=== PATIENT | male | born 1955 | race Caucasian/White ===

== ENCOUNTER 2023-05-07 00:21 | Emergency (ER) | payer MEDICARE, SELFPAY ==
[2023-05-07] VITALS (16 sets, daily range): BP systolic 123–144; BP diastolic 77–87; PULSE 75–89; RESP 14–22; TEMP 36.1; O2SAT 97–100
--- NOTE | ~2023-05-07 | XR_ITS ---
Clinical Indication: Cough PA and lateral views of the chest: Comparison: None Findings: The lungs are clear, without evidence of focal consolidation or pleural effusion. Cardiome diastinal silhouette is within normal limits. Bones and soft tissues are unremarkable. Impression: Normal chest. Reviewed, dictated and finalized at location . Impression: Normal chest.
--- NOTE | 2023-05-07 01:19 | ECG_ITS ---
Measurements Intervals [place] Rate: 79 P: 48 [place]: 161 QRS: 86 QRSD: 85 T: 30 QT: 356 QTc: 410 Interpretive Statements SINUS RHYTHM BASELINE WANDER- II, III, AVR, AVL, AVF NORMAL ECG NO PREVIOUS ECG AVAILABLE FOR COMPARISON Electronically Signed On 05-07-2023 6:58:37 CDT by Delvis Doe D.O.
[2023-05-07 01:59] LABS: Influenza A QL RT-PCR Negative (Negative); Influenza B QL RT-PCR Negative (Negative); SARS-CoV-2 RNA PCR Positive (Negative)
[2023-05-07] MEDS: ACETAMINOPHEN 500 MG TABLET 1000 MG PO (03:05)
[2023-05-07] MEDS: IBUPROFEN 400 MG TABLET 800 MG PO (03:05)
[2023-05-07] MEDS: guaiFENesin/DEXTROMETHORPHAN 10 ML UDC PO (03:06)
[2023-05-07] MEDS: chlorproMAZINE HCL 25 MG TABLET PO (03:06)
--- NOTE | 2023-05-07 03:20 | ED.GENADULT ---
HPI - General Adult General Chief complaint: Upper Respiratory Infection Stated complaint: upper resp symptoms Time Seen by Provider: 05/07/23 01:56 History of Present Illness HPI narrative: this is a 59-year-old male presenting ED with a chief complaint of URI symptoms. Patient was diagnosed with COVID 2 weeks ago. At that time he was treated with Paxlovid. His symptoms improved but now they have recurred. Now he has cough, hiccups congestion and generalized fatigue. He denies chest pain or shortness of breath. Denies nausea vomiting or diarrhea. Related Data Home Medications Medication Instructions Recorded Confirmed atorvastatin 20 mg tablet 20 mg PO DAILY 06/30/19 06/30/19 bisoprolol 5 1 tablet PO DAILY 06/30/19 06/30/19 mg-hydrochlorothiazide 6.25 mg tablet fenofibrate micronized 134 mg 134 mg PO DAILY 06/30/19 06/30/19 capsule metformin 500 mg tablet 500 mg PO DAILY 06/30/19 06/30/19 quinapril 20 mg tablet 20 mg PO DAILY 06/30/19 06/30/19 Allergies Allergy/AdvReac Type Severity Reaction Status Date / Time No Known Allergies Allergy Mild Verified 05/07/23 01:12 [facility] Past Medical History Medical History Diabetes Hyperlipidemia Hypertension Social History Social History Gender identity (if verbalized by the patient): Male Exam Narrative: APPEARANCE: No apparent distress. Head: atraumatic. EYES: EOMI, NOSE: Atraumatic NECK: Trachea midline RESPIRATORY: No increased rate of breathing , clear to auscultation CARDIOVASCULAR: RRR, no peripheral edema ABDOMINAL: Non-distended soft nontender no guarding rebound MUSCULOSKELETAl: No obvious deformities NEURO: Alert. Moving 4/4 extremities SKIN:: Warm, dry. Normal color PSYCHIATRIC: Normal affect Course Vital Signs Vital signs: Vital Signs Temperature 97.0 F L 05/07/23 00:24 Pulse Rate 78 05/07/23 00:24 Respiratory Rate 18 05/07/23 00:24 Blood Pressure 141/79 H 05/07/23 00:24 Pulse Oximetry 99 05/07/23 00:24 Oxygen Delivery Room Air 05/07/23 00:24 Temperature 97.0 F L 05/07/23 00:24 Pulse Rate 81 05/07/23 02:46 Respiratory Rate 16 05/07/23 02:46 Blood Pressure 133/81 05/07/23 02:45 Pulse Oximetry 100 05/07/23 02:46 Oxygen Delivery Room Air 05/07/23 01:15 Medical Decision Making MDM Narrative Medical decision making narrative: -Course: 67-year-old male presenting with URI symptoms 2 weeks after being treated with Paxil that for his COVID. His COVID test had been negative over last several days but there again positive. This is likely rebound COVID. Patient was treated symptomatically with improvement in his symptoms. He will be discharged with supportive care. Return precautions given -DDX includes but is not limited to: URI, COVID, rebound COVID, pneumonia, bronchitis, PE -Co-morbidities complicating care: recent COVID infection, hypertension, diabetes -Social determinants of health: retired, lives with his -Independent interpretation of studies: COVID positive. chest x-ray unremarkable. Independent EKG interpretation: Rhythm [sinus], Rate [79], [place] -[normal], [place] -[normal], QRS [narrow], QTC [normal], T waves -[negative for concerning inversions], ST Segments - [Negative for concerning elevations] Final interpretations: [Normal Sinus Rhythm] -Dx tests considered but not ordered: PE studies- not tachycardic, not hypoxic, No chest pain, no respiratory distress. -Interventions: Motrin, Tylenol, Thorazine, Robitussin, Zofran -Shared decision making / Disposition: discharged. X Vital Signs Vital Signs: Vital Signs Temperature 97.0 F L 05/07/23 00:24 Pulse Rate 78 05/07/23 00:24 Respiratory Rate 18 05/07/23 00:24 Blood Pressure 141/79 H 05/07/23 00:24 Pulse Oximetry 99 05/07/23 00:24 Oxygen Delivery Room Air 05/07/23 00:24 T
== END 2023-05-07 03:45 | disposition home or self-care (01) ==
PROVIDERS: Emergency Provider Emergency Medicine; PCP Internal Medicine
DX: U07.1 COVID-19 (principal); R06.6 Hiccough; E11.9 Type 2 diabetes mellitus without complications; E78.5 Hyperlipidemia, unspecified; I10 Essential (primary) hypertension
CPT/HCPCS: 71046; 87636; 93005; 99283; A9270

== ENCOUNTER 2023-05-08 11:24 | Inpatient (IN) | payer MEDICARE, SELFPAY ==
[2023-05-08] VITALS (20 sets, daily range): BP systolic 57–148; BP diastolic 42–76; PULSE 69–105; RESP 13–25; TEMP 36.6–36.8; O2SAT 98–100; BMI 30.9
--- NOTE | ~2023-05-08 | NM_ITS ---
EXAMINATION: NM lung vent and perfusion DATE: 05/10/2023 11:41 INDICATION: Cough. Syncope. Orthostatic hypotension. TECHNIQUE: Ventilation images were performed with 26 mCi Xenon-[id number]. 5.5 mCi Tc-99m MAA was administer ed intravenously for perfusion images. Scintigraphic images of the chest were obtained. COMPARISON: Chest single view 05/09/2023 FINDINGS: The ventilation images demonstrate decreased activity in the left lung relative to the right on the s mary jo breath image. There is retention of radiotracer bilaterally on washout images. Perfusion images show no defects. IMPRESSION: 1. Normal lung perfusion. Reviewed, dictated and finalized at location A. IMPRESSION: 1. Normal lung perfusion.
--- NOTE | ~2023-05-08 | XR_ITS ---
XR chest 1V portable DATE: 05/08/2023 12:27 INDICATION: Syncope. Covid-positive. TECHNIQUE: Portable AP chest on 05/04/2023 at 1220 hours COMPARISON: 05/07/2023 PA and lateral chest FINDINGS: Normal heart size. No hilar or mediastinal enlargement. No pulmonary infiltrate or consolid ation, pleural effusion or pulmonary vascular congestion or pneumothorax. Osteopenia. Dextro scoliosis and degenerative spurring of the thoracic spine. [place] devices of right humeral hea d. IMPRESSION: No active cardiopulmonary disease Reviewed, dictated and finalized at location A.
--- NOTE | ~2023-05-08 | CT_ITS ---
Non-contrast Head CT History: Headache Technique: Axial non-contrast imaging of the brain was performed. Dose reduction technique was used on this scan by utilizing automated exposure control and iterative reconstruction technique. The dose -length product (DLP) was 681.00 mGy-cm. Findings: There is no evidence of intracranial hemorrhage, solid mass lesion, or acute infarct. Ther e is a small arachnoid cyst at the anterior left temporal fossa. Brain parenchyma appears normal. Th e ventricles and subarachnoid spaces are normal in size. The calvarium appears normal. Mild left max illary sinus disease noted. The remaining visualized paranasal sinuses and mastoid air cells are soheila r. Impression: No acute intracranial abnormality. Small arachnoid cyst at the anterior left temporal fossa. Mild left maxillary sinus disease. Reviewed, dictated and finalized at [facility]. Impression: No acute intracranial abnormality. Small arachnoid cyst at the anterior left temporal fossa. Mild left maxillary sinus disease.
--- NOTE | 2023-05-08 11:42 | ECG_ITS ---
Measurements Intervals [place] Rate: 71 P: 16 [place]: 165 QRS: 57 QRSD: 96 T: 14 QT: 394 QTc: 430 Interpretive Statements SINUS RHYTHM NORMAL ECG COMPARED TO ECG 05/07/2023 01:24:25 NO SIGNIFICANT CHANGES Electronically Signed On 05-08-2023 16:34:25 CDT by Delvis Doe D.O.
[2023-05-08 12:02] LABS: Basophils Percent Auto 0.2 % (0.2-1.2); Eosinophils Absolute Auto 0.1 K/mm3 (0-0.3); Eosinophils Percent Auto 0.9 % (0-4.4); Hematocrit 38.2 % (42.0-52.0); Hemoglobin 13.1 g/dL (14.0-18.0); Immature Granulocyte Absolute 0.04 K/mm3 (0.00-0.031); Immature Granulocyte Percent A 0.6 % (0-0.5); Lymphocytes Absolute Auto 1.34 K/mm3 (0.9-3.2); Lymphocytes Percent Auto 20.2 % (18.3-44.2); Mean Corpuscular HGB Conc 34.3 g/dl (32-36); Mean Corpuscular Hemoglobin 29.4 pg (26-34); Mean Corpuscular Volume 85.7 fl (80-100); Mean Platelet Volume 9.9 fl (7.4-10.4); Monocytes Absolute Auto 0.6 K/mm3 (0.1-0.6); Monocytes Percent Auto 8.9 % (2.6-8.5); Neutrophils Absolute Auto 4.6 K/mm3 (1.3-6.7); Neutrophils Percent Auto 69.2 % (45.5-73.1); Platelet Count Result 206 k/mm3 (150-375); Red Blood Count 4.46 M/mm3 (4.6-6.20); Red Cell Distribution Width 11.9 % (11.5-14.5); White Blood Count 6.7 K/mm3 (4.5-10.0)
[2023-05-08 12:15] LABS: Alanine Aminotransferase 22 U/L (6-50); Anion Gap 13 mmol/L (8-16); Aspartate Amino Transferase 30 U/L (17-59); Blood Urea Nitrogen 35 mg/dL (9-20); Calcium 10.2 mg/dL (8.4-10.2); Carbon Dioxide 24 mmol/L (22-30); Chloride 94 mmol/L (98-107); Estimated CRCL calculation 30 ml/min; Estimated Glomerular Filt Rate 30; Glucose 117 mg/dL (65-110); Potassium 4.4 mmol/L (3.4-5.0); Sodium 131 mmol/L (137-145)
[2023-05-08 12:16] LABS: Albumin Level 4.5 g/dL (3.5-5.1); Alkaline Phosphatase 47 U/L (38-126)
[2023-05-08] MEDS: SODIUM CHLORIDE 0.9% IV 2,000 ML 999 ML IV CONT (12:23)
[2023-05-08 12:48] LABS: Lactic Acid Reflex 1.5 mmol/L (0.7-2.0)
[2023-05-08 12:53] LABS: Appearance Urine Clear (Clear); Bilirubin Urine Negative (Negative); Blood Urine Negative (Negative); Color Urine Yellow (Yellow); Glucose Urine UA Negative (Negative); Ketones Urine Negative (Negative); Leukocyte Esterase Ur Negative LEU/UL (Negative); Nitrate Urine Negative (Negative); Protein Urine Negative (Negative); pH Urine 5.5 (5.0-9.0)
[2023-05-08 12:54] LABS: INR 1.1; Prothrombin Time 14.4 Seconds (11.1-14.7)
[2023-05-08 12:57] LABS: Add Urine Microscopic? NO
[2023-05-08 13:14] LABS: Influenza A QL RT-PCR Negative (Negative); Influenza B QL RT-PCR Negative (Negative)
--- NOTE | 2023-05-08 13:35 | ED.SYNCOPE ---
HPI - Syncope General Chief Complaint: Syncope Stated Complaint: COVID, weakness, syncope Time Seen by Provider: 05/08/23 12:02 History of Present Illness HPI narrative: This is a 67-year-old male, with past history of hypertension, positive for COVID 2 weeks ago, who presents to the emergency department with 3 episodes of syncope in the past day. The patient was seen in this emergency room yesterday for hiccups and was discharged with Compazine. Yesterday evening, the patient's noted while walking to the bathroom, the patient lost consciousness. Today, the patient has lost consciousness twice. The patient feels overall weak but has no other acute complaints. Related Data Home Medications Medication Instructions Recorded Confirmed atorvastatin 20 mg tablet 20 mg PO DAILY 06/30/19 05/08/23 fenofibrate micronized 134 mg 134 mg PO DAILY 06/30/19 05/08/23 capsule Ozempic 1 mg BYMOUTH WEEKLY 05/08/23 05/08/23 losartan 50 mg tablet 50 mg PO DAILY 05/08/23 05/08/23 ondansetron 4 mg disintegrating 4 mg PO Q8H PRN nausea and vomiting 05/08/23 05/08/23 tablet tamsulosin 0.4 mg capsule 0.4 mg PO DAILY 05/08/23 05/08/23 Allergies Allergy/AdvReac Type Severity Reaction Status Date / Time No Known Allergies Allergy Mild Verified 05/07/23 01:12 Review of Systems Review of Systems: CONSTITUTIONAL: Denies fever, chills, or sweats. CARDIOVASCULAR: Denies chest pain, palpitations, or edema. RESPIRATORY: Intermittent dry cough denies dyspnea. GASTROINTESTINAL: Loose stools and intermittent vomiting without blood denies abdominal pain, nausea, GENITOURINARY: Denies dysuria or hematuria. SKIN: Denies rash or itching. MUSCULOSKELETAL: Denies back pain, joint pain, or myalgia. NEUROLOGIC: Lightheadedness denies headache, dizziness, or weakness. PSYCHIATRIC: Denies anxiety or depression. [facility] Past Medical History Medical History (Updated 05/08/23 @ 20:55 by Jacqueline Copeland PA-C) Hyperlipidemia Hypertension Metabolic syndrome X Surgical History Surgical History (Updated 05/08/23 @ 18:40 by Jacqueline Copeland PA-C) History of appendectomy History of repair of right rotator cuff History of right inguinal hernia repair History of vasectomy Family History Family History Mother Diabetes mellitus Father Lung cancer Social History Social History (Updated 05/08/23 @ 18:41 by Jacqueline Copeland PA-C) Social History: Surrogate medical decision maker: Sarah Crawford, spouse. Code status: Full code. Smoking status: Never smoker Alcohol intake: current Substance use: never Lack of Transportation: No Lack of Food: Never True Current Housing: I Have Housing Concerned About Future Housing: No Difficulty Paying Gas/Electric Bills: No Difficulty Paying for Meds: No Currently Unemployed: No Education: High School Diploma/GED Difficulty w/ Childcare or Family Care: No Spiritual care concerns: No Exam Narrative: GENERAL: Well-developed, well-nourished, and in no acute distress. HEAD: Normocephalic, atraumatic. EYES: PERRLA and EOMI. ENT: Nares clear, no rhinorrhea or epistaxis. Mucous membranes moist. CHEST: Clear to auscultation. No respiratory distress. No wheezes rales or rhonchi HEART: Regular rate and rhythm. No murmur heard. Normal peripheral pulses. ABDOMEN: Soft, nontender, nondistended, normal active bowel sounds. EXTREMITIES: Normal range of motion. No edema. SKIN: Warm, dry, no rash. NEURO: Alert and oriented x3. Moving all 4 limbs purposefully. PSYCH: Normal mood and affect. Course Course Emergency Course: 13:40 - CBC demonstrates mild anemia with hemoglobin of 13.1 but is otherwise unremarkable. Chemistries demonstrate mild hyponatremia with sodium of 131 and creatinine elevation of 2.2 with an unknown baseline. Lactic acid is negative. Urinalysis negative. Influenza swab negative. Chest x-ray not
[2023-05-08 14:51] LABS: Anion Gap 10 mmol/L (8-16); Blood Urea Nitrogen 34 mg/dL (9-20); Calcium 9.4 mg/dL (8.4-10.2); Carbon Dioxide 19 mmol/L (22-30); Chloride 101 mmol/L (98-107); Estimated CRCL calculation 36 ml/min; Estimated Glomerular Filt Rate 38; Glucose 104 mg/dL (65-110); Potassium 4.4 mmol/L (3.4-5.0); Sodium 130 mmol/L (137-145)
--- NOTE | 2023-05-08 16:23 | ADMGEN ---
This patient, Bo Crawford, was admitted to Medical Room 253-01. Patient/family oriented to hospital policies and general routines including ID bracelet, bed and alarms, visiting hours, pain management, procedures, bathroom and other care routines, personal items, smoking policy, room service/diet, and visiting hours. Information on how to activate the Rapid Response Team has been discussed. Patient/Family are encouraged to report perceived risks to care and to ask questions if they do not understand what they are told or what they should do.
[2023-05-08] MEDS: SODIUM CHLORIDE 0.9% IV 1,000 ML 125 ML IV CONT (16:31)
[2023-05-08 16:47] LABS: Glucose Point of Care 99 mg/dl (65-105)
--- NOTE | 2023-05-08 18:26 | PM.IMHP ---
H&P: HPI History of Present Illness Date/Time: 05/08/23 19:30 Chief Complaint: Weakness, fall, syncope. Narrative: This is a 67-year-old male with insulin-dependent type 2 diabetes mellitus, hypertension, hyperlipidemia, and benign prostatic hyperplasia who presented to the emergency department via EMS from home for evaluation of weakness, falls, and syncope. The patient provides the following history. He was diagnosed with COVID 2 weeks ago and was treated with Paxlovid with improvement. His symptoms returned this week and he was seen in the emergency department 2 days ago for evaluation of generalized fatigue, congestion, cough, and hiccups. He was treated symptomatically with improvement. COVID test was still positive and it was thought that he likely had rebound COVID. He remains weak with intermittent hiccups which seemed to be worse with talking, nausea, and dry heaves. His appetite remains poor with decreased oral intake. In the last 24 hours he has been getting extremely lightheaded and dizzy upon standing and he reports having four syncopal episodes since last night. Luckily he has not sustained any injury in the falls. He denies fever, vertigo, focal weakness, paresthesias, chest pain, pleuritic pain, palpitations, and lower extremity edema. In the ED: He was afebrile on arrival with a blood pressure of 83/51. Blood pressures have improved significantly after receiving 2 L of normal saline. Labs were significant for a sodium of 131, chloride 94, BUN 35, creatinine 2.20, lactic acid 1.5. Chest x-ray showed no active cardiopulmonary disease. EKG showed a sinus rhythm with a QTc of 430. He is being admitted in this setting for close monitoring given syncope and continued IV fluid rehydration for acute kidney injury. Review of Systems Review of Systems: Twelve systems were reviewed and are negative except for as per HPI. [facility] Past Medical History Medical History (Updated 05/09/23 @ 00:39 by Jacqueline Copeland PA-C) Hyperlipidemia Hypertension Metabolic syndrome X Surgical History Surgical History (Updated 05/08/23 @ 18:40 by Jacqueline Copeland PA-C) History of appendectomy History of repair of right rotator cuff History of right inguinal hernia repair History of vasectomy Family History Family History Mother Diabetes mellitus Father Lung cancer Social History Social History (Updated 05/08/23 @ 18:41 by Jacqueline Copeland PA-C) Social History: Surrogate medical decision maker: Sarah Crawford, spouse. Code status: Full code. Smoking status: Never smoker Alcohol intake: current Substance use: never Lack of Transportation: No Lack of Food: Never True Current Housing: I Have Housing Concerned About Future Housing: No Difficulty Paying Gas/Electric Bills: No Difficulty Paying for Meds: No Currently Unemployed: No Education: High School Diploma/GED Difficulty w/ Childcare or Family Care: No Spiritual care concerns: No Meds Home Medications and Allergies Home Medications Medication Instructions Recorded Confirmed Type atorvastatin 20 mg tablet 20 mg PO DAILY 06/30/19 05/08/23 History fenofibrate micronized 134 mg 134 mg PO DAILY 06/30/19 05/08/23 History capsule Ozempic 1 mg BYMOUTH WEEKLY 05/08/23 05/08/23 History losartan 50 mg tablet 50 mg PO DAILY 05/08/23 05/08/23 History ondansetron 4 mg disintegrating 4 mg PO Q8H PRN nausea and vomiting 05/08/23 05/08/23 History tablet tamsulosin 0.4 mg capsule 0.4 mg PO DAILY 05/08/23 05/08/23 History Allergies Allergy/AdvReac Type Severity Reaction Status Date / Time No Known Allergies Allergy Mild Verified 05/07/23 01:12 Vital Signs Vital Signs - 24 hr 05/08/23 11:30 05/08/23 11:55 05/08/23 12:02 Temperature 97.9 F Pulse Rate 76 71 72 Respiratory Rate 18 15 25 H Blood Pressure 83/51 L 85/63 L Pulse Oximetry 99 99 99 Oxygen Delivery Room Air 0
[2023-05-08 19:34] LABS: Hemoglobin A1C 5.6 % (<5.7)
[2023-05-08 22:10] LABS: Glucose Point of Care 91 mg/dl (65-105)
[2023-05-09] VITALS (15 sets, daily range): BP systolic 92–133; BP diastolic 42–75; PULSE 63–97; RESP 18; TEMP 36.2–37; O2SAT 98–100
[2023-05-09] MEDS: SODIUM CHLORIDE 0.9% IV 1,000 ML 125 ML IV CONT ×3 (00:17→17:20)
[2023-05-09 02:33] LABS: Basophils Percent Auto 0.3 % (0.2-1.2); Eosinophils Absolute Auto 0.1 K/mm3 (0-0.3); Eosinophils Percent Auto 0.9 % (0-4.4); Hematocrit 33.9 % (42.0-52.0); Hemoglobin 11.6 g/dL (14.0-18.0); Immature Granulocyte Absolute 0.04 K/mm3 (0.00-0.031); Immature Granulocyte Percent A 0.6 % (0-0.5); Lymphocytes Absolute Auto 1.44 K/mm3 (0.9-3.2); Lymphocytes Percent Auto 22.1 % (18.3-44.2); Mean Corpuscular HGB Conc 34.2 g/dl (32-36); Mean Corpuscular Hemoglobin 29.8 pg (26-34); Mean Corpuscular Volume 87.1 fl (80-100); Mean Platelet Volume 9.7 fl (7.4-10.4); Monocytes Absolute Auto 0.7 K/mm3 (0.1-0.6); Monocytes Percent Auto 11.1 % (2.6-8.5); Neutrophils Absolute Auto 4.2 K/mm3 (1.3-6.7); Platelet Count Result 175 k/mm3 (150-375); Red Blood Count 3.89 M/mm3 (4.6-6.20); Red Cell Distribution Width 12.2 % (11.5-14.5); White Blood Count 6.5 K/mm3 (4.5-10.0)
[2023-05-09 02:54] LABS: Anion Gap 5 mmol/L (8-16); Blood Urea Nitrogen 30 mg/dL (9-20); Calcium 9.4 mg/dL (8.4-10.2); Carbon Dioxide 25 mmol/L (22-30); Chloride 107 mmol/L (98-107); Estimated CRCL calculation 40 ml/min; Estimated Glomerular Filt Rate 43; Glucose 102 mg/dL (65-110); Magnesium 2.2 mg/dL (1.6-2.3); Potassium 4.5 mmol/L (3.4-5.0); Sodium 137 mmol/L (137-145)
[2023-05-09 05:33] LABS: D Dimer 0.54 ug/mL (<0.48)
[2023-05-09] MEDS: ATORVASTATIN 20 MG TABLET PO (08:10)
[2023-05-09 08:15] LABS: Glucose Point of Care 106 mg/dl (65-105)
[2023-05-09 12:10] LABS: Glucose Point of Care 87 mg/dl (65-105)
--- NOTE | 2023-05-09 14:13 | PM.IMPN ---
Progress Note: A&P Assessment and Plan (1) COVID: Code(s): U07.1 - COVID-19 Status: Acute (2) Syncope: Qualifiers: Syncope type: unspecified Qualified Code(s): R55 - Syncope and collapse Code(s): R55 - Syncope and collapse Status: Acute (3) Acute kidney injury: Code(s): N17.9 - Acute kidney failure, unspecified Status: Acute (4) Orthostatic hypotension: Code(s): I95.1 - Orthostatic hypotension Status: Acute (5) Metabolic syndrome X: Code(s): E88.81 - Metabolic syndrome Status: Acute Plan 59-year-old male with past medical history of hypertension COVID positive 2 weeks ago presented with syncopal episodes in the past day. Patient presented to the ER 05/07/2023 with hiccups and was discharged on Compazine. Patient walked to the bathroom went unconscious x2 ED evaluation revealed mild hyponatremia 131 creatinine elevation of 2.2 lactate negative UA negative influenza negative chest x-ray negative blood pressure was adequate. He was diagnosed with COVID 2 weeks ago was treated with paxlovid with improvement however still has significant cough. Blood pressure in the ED was 83/51 improved after 2 L of normal saline. QTC of 430 Syncope YARA Orthostatic hypotension profoundly orthostatic blood pressure dropped from 116/60 to 57/42 continue IV hydration. D-dimer mildly elevated at 0.54 could be related to recent COVID will get V/Q scan YARA improving hyponatremia resolved Telemetry with possible second-degree AV block. Will consult cardiology. Will get echocardiogram Headache reported possible injury to head will get CT head Subjective Date/time seen: 05/09/23 14:13 Interval history: 59-year-old male with past medical history of hypertension COVID positive 2 weeks ago presented with syncopal episodes in the past day. Patient presented to the ER 05/07/2023 with hiccups and was discharged on Compazine. Patient walked to the bathroom went unconscious x2 ED evaluation revealed mild hyponatremia 131 creatinine elevation of 2.2 lactate negative UA negative influenza negative chest x-ray negative blood pressure was adequate. He was diagnosed with COVID 2 weeks ago was treated with paxlovid with improvement however still has significant cough. Blood pressure in the ED was 83/51 improved after 2 L of normal saline. QTC of 430 Syncope YARA Orthostatic hypotension profoundly orthostatic blood pressure dropped from 116/60 to 57/42 continue IV hydration. D-dimer mildly elevated at 0.54 could be related to recent COVID will get V/Q scan YARA improving hyponatremia resolved Telemetry with possible second-degree AV block. Will consult cardiology. Will get echocardiogram Headache reported possible injury to head will get CT head Review of Systems Review of Systems: All systems reviewed & are unremarkable except as noted in HPI and below Exam Narrative: General: Mildly ill-appearing gentleman the semi-Ochoa position in bed. Not in acute distress HEENT: PERRL, EOMI. Sclera anicteric. Tacky mucous membranes. Oropharynx is mildly erythematous. Neck: Supple. No JVD or lymphadenopathy. Respiratory: Lungs are clear to auscultation bilaterally. Cardiovascular: Regular rate and rhythm with S1-S2. Gastrointestinal: Abdomen is soft, nontender, and nondistended with positive bowel sounds. Skin: Warm and dry. No rash or lesions on limited exam. Extremities: No cyanosis, clubbing, or edema. Radial and pedal pulses intact. No palpable knots or cords. Neurological: Alert. Cranial nerves 2-12 are grossly intact. No gross focal deficits to casual conversation. Psychiatric: Pleasant and cooperative with normal mood and affect. Judgment and insight intact. Objective Data Vital Signs Vital Signs: Vital Signs - 24 hr 05/08/23 14:16 05/08/23 15:01 05/08/23 17:06 Temperature Pulse Rate 85 70 Respiratory Rate 22 H 16 Blood Pressure 119/76 121/64 Pulse Oximetry
[2023-05-09] MEDS: FLUTICASONE PROPIONATE 0.05% NA SPR 16 GM BTL (*BKC) 1 SPRAY NASAL (20:22)
[2023-05-10] VITALS (18 sets, daily range): BP systolic 93–165; BP diastolic 58–91; PULSE 60–150; RESP 16–20; TEMP 36.7–37.1; O2SAT 98–100
--- NOTE | 2023-05-10 | ECHO_ITS ---
Patient Info Name: Bo Crawford Age: 67 years : 1955 Gender: Male Ht: 65 in Wt: 182 lbs BSA: 1.97 m2 HR: 60 bpm BP: 140 / 66 mmHg Heart Rhythm: Sinus Rhythm Technical Quality: Fair Exam Date: 05/10/2023 1:52 PM Exam Location: [facility] Pulmonary Exam Room: [facility] Patient Status: Inpatient Admit Date: 05/08/2023 Staff Ordering Physician: Sherman Garcia MD Windows Support Engineer: Alyssia Stephens RDCS Attending Provider: Savi Christensen DO Exam Type: CA echo doppler color flow Study Info Indications - syncope Complete two-dimensional, color flow and Doppler transthoracic echocardiogram is performed. Summary 1. Complete two-dimensional, color flow and Doppler transthoracic echocardiogram is performed. 2. Normal left and right ventricular size and systolic function. 3. Trivial amounts of both tricuspid and pulmonic valve regurgitation. Left Ventricle Left ventricular chamber dimension is normal. Left ventricular systolic function is normal, estimated at 60-65%. The left ventricular diastolic function is grade I diastolic dysfunction. Right Ventricle Right ventricular chamber dimension is normal. Left Atria Left atrial chamber dimension is normal. Right Atria Right atrial chamber dimension is normal. Aortic Valve The aortic valve is normal. Pulmonic Valve The pulmonic valve is normal. There is trace pulmonic regurgitation. Mitral Valve The mitral valve has normal leaflets. Tricuspid Valve The tricuspid valve leaflets are normal. There is trace tricuspid valve regurgitation. Pericardium/Pleural The pericardium appears normal. Aorta The aortic root size at the sinus of Valsalva is normal. Left Ventricular Outflow Tract Name Value Normal LVOT 2D LVOT Diameter 2.0 cm LVOT Doppler LVOT Peak Gradient 4 mmHg LVOT Mean Gradient 3 mmHg LVOT VTI 22 cm LVOT VTI/AV VTI Ratio 0.7 LVOT Stroke Volume 68 ml LVOT CO 14.6 l/min LVOT CI 7.4 l/min/m2 Pulmonic Valve Name Value Normal RVOT Doppler RVOT Peak Gradient 1 mmHg PV Doppler PV Peak Gradient 2 mmHg Mitral Valve Name Value Normal MV Doppler MV Decel [place] 486 cm/s2 MV PHT 43 ms MV Area (PHT) 5.1 cm2 4.0-5.0 MV Diastolic Function MV E Peak Velocity
[2023-05-10] MEDS: SODIUM CHLORIDE 0.9% IV 1,000 ML 125 ML IV CONT ×2 (01:35→10:12)
[2023-05-10 06:08] LABS: Basophils Percent Auto 0.3 % (0.2-1.2); Eosinophils Absolute Auto 0.1 K/mm3 (0-0.3); Eosinophils Percent Auto 2.1 % (0-4.4); Hematocrit 35.7 % (42.0-52.0); Hemoglobin 12.1 g/dL (14.0-18.0); Immature Granulocyte Absolute 0.02 K/mm3 (0.00-0.031); Immature Granulocyte Percent A 0.3 % (0-0.5); Lymphocytes Absolute Auto 1.59 K/mm3 (0.9-3.2); Lymphocytes Percent Auto 25.7 % (18.3-44.2); Mean Corpuscular HGB Conc 33.9 g/dl (32-36); Mean Corpuscular Volume 88.4 fl (80-100); Mean Platelet Volume 10.3 fl (7.4-10.4); Monocytes Absolute Auto 0.6 K/mm3 (0.1-0.6); Monocytes Percent Auto 9.9 % (2.6-8.5); Neutrophils Absolute Auto 3.8 K/mm3 (1.3-6.7); Neutrophils Percent Auto 61.7 % (45.5-73.1); Platelet Count Result 173 k/mm3 (150-375); Red Blood Count 4.04 M/mm3 (4.6-6.20); White Blood Count 6.2 K/mm3 (4.5-10.0)
[2023-05-10 06:28] LABS: Alanine Aminotransferase 19 U/L (6-50); Albumin Level 3.7 g/dL (3.5-5.1); Alkaline Phosphatase 46 U/L (38-126); Anion Gap 7 mmol/L (8-16); Aspartate Amino Transferase 24 U/L (17-59); Bilirubin,Total 0.6 mg/dL (0.2-1.3); Blood Urea Nitrogen 19 mg/dL (9-20); Calcium 9.1 mg/dL (8.4-10.2); Carbon Dioxide 24 mmol/L (22-30); Chloride 107 mmol/L (98-107); Estimated CRCL calculation 48 ml/min; Estimated Glomerular Filt Rate 55; Glucose 103 mg/dL (65-110); Sodium 138 mmol/L (137-145)
[2023-05-10] MEDS: FLUTICASONE PROPIONATE 0.05% NA SPR 16 GM BTL (*BKC) 1 SPRAY NASAL ×2 (08:44→21:04)
[2023-05-10] MEDS: ATORVASTATIN 20 MG TABLET PO (08:45)
[2023-05-10] MEDS: ACETAMINOPHEN 325 MG TABLET 650 MG PO (08:45)
--- NOTE | 2023-05-10 09:34 | PM.CNCAR ---
Assessment and Plan Assessment and plan (1) Syncope: Qualifiers: Syncope type: unspecified Qualified Code(s): R55 - Syncope and collapse Code(s): R55 - Syncope and collapse Status: Acute Assessment and Plan: Reports 4 recent syncopal events. His history is consistent with orthostatic hypotension and his orthostatic vital signs are positive. He does not have any bradycardia, high degree AV blocks, or tachyarrhythmias demonstrated on telemetry that would explain his syncope. He is in sinus rhythm with occasional nonconducted PAC's. Telemetry strips reviewed with Dr. Hoover. Orthostatic vital signs have improved with fluid resuscitation. Echo has been ordered and will be reviewed. No other cardiac workup indicated at this time. Cardiology will sign off please call with questions. (2) Orthostatic hypotension: Code(s): I95.1 - Orthostatic hypotension Status: Acute Assessment and Plan: As above, improved with IV fluids. History of Present Illness History of Present Illness Consult date/time: 05/10/23 09:34 Requesting physician: Sherman Garcia MD Consult reason: Other (syncope) Reason For Visit: ervin,orthostatic hypotension Narrative: Mr. Bo Crawford is a 67 year old male with hypertension and hyperlipidemia who presents to the hospital following 4 syncopal events. He describes several events of losing consciousness after moving quickly from a seated to standing position. He has been sleeping in his recliner recently because he has been sick with COVID and sleeping sitting upright helps his breathing. He states he stood up abruptly to use the bathroom and lost consciousness several seconds later. This happened a few more times before he was brought to the hospital. He denies feeling any light headedness, chest pain, shortness of breath prior to passing out. His blood pressure measurements demonstrate significant orthostatic hypotension with a drop in systolic blood pressure from 116mmHg to 57mmHg. Currently, he is lying comfortably in bed and does not have any complaints. Review of Systems Review of Systems: All systems reviewed & are unremarkable except as noted in HPI and below PMFSH Past Medical History Medical History Hyperlipidemia Hypertension Metabolic syndrome X Surgical History Surgical History History of appendectomy History of repair of right rotator cuff History of right inguinal hernia repair History of vasectomy Family History Family History Mother Diabetes mellitus Father Lung cancer Social History Social History Social History: Surrogate medical decision maker: Sarah Crawford, spouse. Code status: Full code. Smoking status: Never smoker Alcohol intake: current Substance use: never Lack of Transportation: No Lack of Food: Never True Current Housing: I Have Housing Concerned About Future Housing: No Difficulty Paying Gas/Electric Bills: No Difficulty Paying for Meds: No Currently Unemployed: No Education: High School Diploma/GED Difficulty w/ Childcare or Family Care: No Spiritual care concerns: No Meds Home Medications and Allergies Home Medications Medication Instructions Recorded Confirmed Type atorvastatin 20 mg tablet 20 mg PO DAILY 06/30/19 05/08/23 History fenofibrate micronized 134 mg 134 mg PO DAILY 06/30/19 05/08/23 History capsule Ozempic 1 mg BYMOUTH WEEKLY 05/08/23 05/08/23 History losartan 50 mg tablet 50 mg PO DAILY 05/08/23 05/08/23 History ondansetron 4 mg disintegrating 4 mg PO Q8H PRN nausea and vomiting 05/08/23 05/08/23 History tablet tamsulosin 0.4 mg capsule 0.4 mg PO DAILY 05/08/23 05/08/23 History Allergies Allergy/AdvReac Type Severity [place]
--- NOTE | 2023-05-10 15:26 | PM.IMPN ---
Progress Note: A&P Assessment and Plan (1) COVID: Code(s): U07.1 - COVID-19 Status: Acute (2) Syncope: Qualifiers: Syncope type: unspecified Qualified Code(s): R55 - Syncope and collapse Code(s): R55 - Syncope and collapse Status: Acute (3) Acute kidney injury: Code(s): N17.9 - Acute kidney failure, unspecified Status: Acute (4) Orthostatic hypotension: Code(s): I95.1 - Orthostatic hypotension Status: Acute (5) Metabolic syndrome X: Code(s): E88.81 - Metabolic syndrome Status: Acute Plan 59-year-old male with past medical history of hypertension COVID positive 2 weeks ago presented with syncopal episodes in the past day. Patient presented to the ER 05/07/2023 with hiccups and was discharged on Compazine. Patient walked to the bathroom went unconscious x2 ED evaluation revealed mild hyponatremia 131 creatinine elevation of 2.2 lactate negative UA negative influenza negative chest x-ray negative blood pressure was adequate. He was diagnosed with COVID 2 weeks ago was treated with paxlovid with improvement however still has significant cough. Blood pressure in the ED was 83/51 improved after 2 L of normal saline. QTC of 430 Syncope YARA Orthostatic hypotension profoundly orthostatic blood pressure dropped from 116/60 to 57/42 continue IV hydration. D-dimer mildly elevated at 0.54 could be related to recent COVID. V/Q scan normal. Orthostatic. Fluids. YARA improving hyponatremia resolved Telemetry with possible second-degree AV block. Consulted Cardiology. Suggest these are nonconducted PACs. Echocardiogram pending Headache reported possible injury to head. CT head is negative Subjective Date/time seen: 05/10/23 15:26 Interval history: 59-year-old male with past medical history of hypertension COVID positive 2 weeks ago presented with syncopal episodes in the past day. Patient presented to the ER 05/07/2023 with hiccups and was discharged on Compazine. Patient walked to the bathroom went unconscious x2 ED evaluation revealed mild hyponatremia 131 creatinine elevation of 2.2 lactate negative UA negative influenza negative chest x-ray negative blood pressure was adequate. He was diagnosed with COVID 2 weeks ago was treated with paxlovid with improvement however still has significant cough. Blood pressure in the ED was 83/51 improved after 2 L of normal saline. QTC of 430 Syncope YARA Orthostatic hypotension profoundly orthostatic blood pressure dropped from 116/60 to 57/42 continue IV hydration. D-dimer mildly elevated at 0.54 could be related to recent COVID will get V/Q scan YARA improving hyponatremia resolved Telemetry with possible second-degree AV block. Will consult cardiology. Will get echocardiogram Headache reported possible injury to head will get CT head 05/10/2023: Feeling better. Blood pressure is not dropping any further. Headache is still present. CT head reviewed. Denies any shortness of breath. Review of Systems Review of Systems: All systems reviewed & are unremarkable except as noted in HPI and below Exam Narrative: General: Well appearing gentleman, Not in acute distress HEENT: PERRL, EOMI. Sclera anicteric. Tacky mucous membranes. Neck: Supple. No JVD or lymphadenopathy. Respiratory: Lungs are clear to auscultation bilaterally. Cardiovascular: Regular rate and rhythm with S1-S2. Gastrointestinal: Abdomen is soft, nontender, and nondistended with positive bowel sounds. Skin: Warm and dry. No rash or lesions on limited exam. Extremities: No cyanosis, clubbing, or edema. Radial and pedal pulses intact. No palpable knots or cords. Neurological: Alert. Cranial nerves 2-12 are grossly intact. No gross focal deficits to casual conversation. Psychiatric: Pleasant and cooperative with normal mood and affect. Judgment and insight intact. Objective Data Vital Signs Vital Signs: Vital Signs - 24 hr 05/09/23
--- NOTE | 2023-05-10 16:11 | PC.NURSE ---
Physical assessment by Student Nurse Jemma Jackson/[facility] reviewed. Agree with same. Any procedures, care or medications that were given by student nurse were completed under direct supervision of this instructor or assigned staff nurse.
[2023-05-10] MEDS: SODIUM CHLORIDE 0.9% IV 1,000 ML 75 ML IV CONT (21:11)
[2023-05-11] VITALS (10 sets, daily range): BP systolic 93–150; BP diastolic 62–85; PULSE 65–93; RESP 18–20; TEMP 36.3–36.9; O2SAT 99–100
[2023-05-11 06:00] LABS: Basophils Percent Auto 0.5 % (0.2-1.2); Eosinophils Absolute Auto 0.2 K/mm3 (0-0.3); Eosinophils Percent Auto 2.5 % (0-4.4); Hematocrit 34.9 % (42.0-52.0); Hemoglobin 11.8 g/dL (14.0-18.0); Immature Granulocyte Absolute 0.03 K/mm3 (0.00-0.031); Immature Granulocyte Percent A 0.5 % (0-0.5); Lymphocytes Percent Auto 24.5 % (18.3-44.2); Mean Corpuscular HGB Conc 33.8 g/dl (32-36); Mean Corpuscular Hemoglobin 29.7 pg (26-34); Mean Corpuscular Volume 87.9 fl (80-100); Mean Platelet Volume 10.2 fl (7.4-10.4); Monocytes Absolute Auto 0.6 K/mm3 (0.1-0.6); Monocytes Percent Auto 8.9 % (2.6-8.5); Neutrophils Absolute Auto 4.1 K/mm3 (1.3-6.7); Neutrophils Percent Auto 63.1 % (45.5-73.1); Platelet Count Result 157 k/mm3 (150-375); Red Blood Count 3.97 M/mm3 (4.6-6.20); Red Cell Distribution Width 11.9 % (11.5-14.5); White Blood Count 6.5 K/mm3 (4.5-10.0)
[2023-05-11 06:11] LABS: Alanine Aminotransferase 18 U/L (6-50); Albumin Level 3.7 g/dL (3.5-5.1); Alkaline Phosphatase 35 U/L (38-126); Anion Gap 8 mmol/L (8-16); Aspartate Amino Transferase 29 U/L (17-59); Bilirubin,Total 0.7 mg/dL (0.2-1.3); Blood Urea Nitrogen 15 mg/dL (9-20); Calcium 9.1 mg/dL (8.4-10.2); Carbon Dioxide 21 mmol/L (22-30); Chloride 107 mmol/L (98-107); Estimated CRCL calculation 57 ml/min; Estimated Glomerular Filt Rate > 60; Glucose 106 mg/dL (65-110); Potassium 4.3 mmol/L (3.4-5.0); Sodium 136 mmol/L (137-145)
[2023-05-11] MEDS: ATORVASTATIN 20 MG TABLET PO (10:18)
[2023-05-11] MEDS: FLUTICASONE PROPIONATE 0.05% NA SPR 16 GM BTL (*BKC) 1 SPRAY NASAL (10:18)
[2023-05-11] MEDS: SODIUM CHLORIDE 0.9% IV 1,000 ML 75 ML IV CONT (10:19)
[2023-05-11] MEDS: ACETAMINOPHEN 325 MG TABLET 650 MG PO (10:27)
--- NOTE | 2023-05-11 13:25 | PM.IMPN ---
Progress Note: A&P Assessment and Plan (1) COVID: Code(s): U07.1 - COVID-19 Status: Acute (2) Syncope: Qualifiers: Syncope type: unspecified Qualified Code(s): R55 - Syncope and collapse Code(s): R55 - Syncope and collapse Status: Acute (3) Acute kidney injury: Code(s): N17.9 - Acute kidney failure, unspecified Status: Acute (4) Orthostatic hypotension: Code(s): I95.1 - Orthostatic hypotension Status: Acute (5) Metabolic syndrome X: Code(s): E88.81 - Metabolic syndrome Status: Acute Plan 59-year-old male with past medical history of hypertension COVID positive 2 weeks ago presented with syncopal episodes in the past day. Patient presented to the ER 05/07/2023 with hiccups and was discharged on Compazine. Patient walked to the bathroom went unconscious x2 ED evaluation revealed mild hyponatremia 131 creatinine elevation of 2.2 lactate negative UA negative influenza negative chest x-ray negative blood pressure was adequate. He was diagnosed with COVID 2 weeks ago was treated with paxlovid with improvement however still has significant cough. Blood pressure in the ED was 83/51 improved after 2 L of normal saline. QTC of 430 Syncope YARA Orthostatic hypotension profoundly orthostatic blood pressure dropped from 116/60 to 57/42 continue IV hydration. D-dimer mildly elevated at 0.54 could be related to recent COVID. V/Q scan normal. Orthostatic. Fluids has been stopped. Orthostatic vitals negative. Still has GERD symptoms. Start PPI YARA improving hyponatremia resolved Telemetry with possible second-degree AV block. Consulted Cardiology. Suggest these are nonconducted PACs. Echocardiogram reviewed and unremarkable Headache reported possible injury to head. CT head is negative PT OT to see if okay to discharge will let him go home Subjective Date/time seen: 05/11/23 13:25 Interval history: 59-year-old male with past medical history of hypertension COVID positive 2 weeks ago presented with syncopal episodes in the past day. Patient presented to the ER 05/07/2023 with hiccups and was discharged on Compazine. Patient walked to the bathroom went unconscious x2 ED evaluation revealed mild hyponatremia 131 creatinine elevation of 2.2 lactate negative UA negative influenza negative chest x-ray negative blood pressure was adequate. He was diagnosed with COVID 2 weeks ago was treated with paxlovid with improvement however still has significant cough. Blood pressure in the ED was 83/51 improved after 2 L of normal saline. QTC of 430 Syncope YARA Orthostatic hypotension profoundly orthostatic blood pressure dropped from 116/60 to 57/42 continue IV hydration. D-dimer mildly elevated at 0.54 could be related to recent COVID will get V/Q scan YARA improving hyponatremia resolved Telemetry with possible second-degree AV block. Will consult cardiology. Will get echocardiogram Headache reported possible injury to head will get CT head 05/10/2023: Feeling better. Blood pressure is not dropping any further. Headache is still present. CT head reviewed. Denies any shortness of breath. 05/11/2023: No further dizziness. Blood pressures stable. Has some cough and burning sensation in upper chest. More like heartburn. Review of Systems Review of Systems: All systems reviewed & are unremarkable except as noted in HPI and below Exam Narrative: General: Well appearing gentleman, Not in acute distress HEENT: PERRL, EOMI. Sclera anicteric. Tacky mucous membranes. Neck: Supple. No JVD or lymphadenopathy. Respiratory: Lungs are clear to auscultation bilaterally. Cardiovascular: Regular rate and rhythm with S1-S2. Gastrointestinal: Abdomen is soft, nontender, and nondistended with positive bowel sounds. Skin: Warm and dry. No rash or lesions on limited exam. Extremities: No cyanosis, clubbing, or edema. Radial and pedal pulses intact. No palpable knots or cords.
[2023-05-11] MEDS: FENOFIBRATE NANOCRYSTALLIZED 145 MG TABLET PO (14:47)
[2023-05-11] MEDS: PANTOPRAZOLE SODIUM IV 40 MG VIAL IV PUSH (14:47)
--- NOTE | 2023-05-11 17:12 | PM.DS ---
DS: Admitting Diagnosis Discharge Date 05/11/2023 Admitting Diagnosis Syncope DS: Discharge Diagnosis Discharge Diagnosis (1) COVID: Code(s): U07.1 - COVID-19 Status: Acute (2) Syncope: Qualifiers: Syncope type: unspecified Qualified Code(s): R55 - Syncope and collapse Code(s): R55 - Syncope and collapse Status: Acute (3) Acute kidney injury: Code(s): N17.9 - Acute kidney failure, unspecified Status: Acute (4) Orthostatic hypotension: Code(s): I95.1 - Orthostatic hypotension Status: Acute (5) Metabolic syndrome X: Code(s): E88.81 - Metabolic syndrome Status: Acute DS: Summary Hospital Course Hospital Course: 59-year-old male with past medical history of hypertension COVID positive 2 weeks ago, treated with Paxlovid with improvement presented with syncopal episodes in the past day.? Patient presented to the ER 05/07/2023 with hiccups and was discharged on Compazine.? Patient walked to the bathroom went unconscious x2. ED evaluation revealed mild hyponatremia 131 creatinine elevation of 2.2 lactate negative UA negative influenza negative chest x-ray negative. Blood pressure in the ED was 83/51 improved after 2 L of normal saline.? QTC of 430 Admitted for syncope and YARA with Orthostatic hypotension He was profoundly orthostatic with blood pressure dropped from 116/60? to 57/42. He was continued on IV hydration. D-dimer mildly elevated at 0.54 could be related to recent COVID.? V/Q scan done which came back normal.? It orthostasis improved with IV hydration and fluid was subsequently stopped. He reported significant symptoms most likely related to GERD. He was started on PPI which helped him quite a bit. He has YARA also resolved with treatment. His hyponatremia resolved Telemetry monitoring showed possible second-degree AV block.? Consulted Cardiology.? Suggest these are nonconducted PACs.? Echocardiogram reviewed and unremarkable Headache reported possible injury to head.? CT head is negative PT OT evaluated and passed therapy Time Spent with Patient Time attestation: Total time spent providing and/or coordinating discharge services: 40 minutes Exam Narrative: General: Well appearing gentleman, Not in acute distress HEENT: PERRL, EOMI. Sclera anicteric. Tacky mucous membranes. Neck: Supple. No JVD or lymphadenopathy. Respiratory: Lungs are clear to auscultation bilaterally. Cardiovascular: Regular rate and rhythm with S1-S2. Gastrointestinal: Abdomen is soft, nontender, and nondistended with positive bowel sounds. Skin: Warm and dry. No rash or lesions on limited exam. Extremities: No cyanosis, clubbing, or edema. Radial and pedal pulses intact. No palpable knots or cords. Neurological: Alert. Cranial nerves 2-12 are grossly intact. No gross focal deficits to casual conversation. Psychiatric: Pleasant and cooperative with normal mood and affect. Judgment and insight intact. DS: Data Data Completed and Pending Completed studies during hospitalization: Exam Type: ? ? CA echo doppler color flow Study Info Indications ?? ? - syncope Complete two-dimensional, color flow and Doppler transthoracic echocardiogram is performed. Account #: ? ? [id number] Summary ? 1. Complete two-dimensional, color flow and Doppler transthoracic echocardiogram is performed. ? 2. Normal left and right ventricular size and systolic function. ? 3. Trivial amounts of both tricuspid and pulmonic valve regurgitation. Left Ventricle ? Left ventricular chamber dimension is normal. ? Left ventricular systolic function is normal, estimated at 60-65%. ? The left ventricular diastolic function is grade I diastolic dysfunction. Right Ventricle ? Right ventricular chamber dimension is normal. Left Atria ? Left atrial chamber dimension is normal. Right Atria ? Right atrial chamber dimension is normal. Aortic Valve ? The aortic valve is nor
== END 2023-05-11 17:50 | disposition home or self-care (01) | DRG 312 ==
LOC: ANHED 12:02 → ANH2MED 15:48
PROVIDERS: Emergency Medicine; Physician Assistant; Student in an Organized Health Care Education/Training Program; Admitting Provider Internal Medicine; Emergency Provider Preventive Medicine Aerospace Medicine; PCP Internal Medicine; Visit Provider Internal Medicine
DX: I95.1 Orthostatic hypotension (principal); E87.1 Hypo-osmolality and hyponatremia; N17.9 Acute kidney failure, unspecified; U09.9 Post COVID-19 condition, unspecified; E88.81 Metabolic syndrome and other insulin resistance; I10 Essential (primary) hypertension; E86.0 Dehydration; N40.0 Benign prostatic hyperplasia without lower urinary tract symptoms; E78.5 Hyperlipidemia, unspecified; D64.9 Anemia, unspecified; K21.9 Gastro-esophageal reflux disease without esophagitis; R06.6 Hiccough; I49.1 Atrial premature depolarization; Z90.49 Acquired absence of other specified parts of digestive tract
CPT/HCPCS: 36415; 70450; 71045; 78582; 80048; 80053; 81003; 82948; 83036; 83605; 83735; 85025; 85380; 85610; 87502; 93005; 93306; 96360; 96361; 97161; 99285; A9270; A9540; A9558; C9113; G0378; J7030

== ENCOUNTER 2025-06-13 10:47 | Outpatient (CLI) | payer MEDICARE, SELFPAY ==
--- NOTE | ~2025-06-13 | XR_ITS ---
EXAMINATION: XR hip RT 2V w AP pelvis, 06/13/2025 10:58 CDT HISTORY: RT HIP PAIN THAT GOES DOWN RT LEG x2 MONTHS COMPARISON: No comparisons available. Findings: No acute fracture or malalignment. Moderate to severe degenerative changes Soft tissues unremarkable. Impression: No acute fracture or malalignment. Reviewed, dictated and finalized at location P. Impression: No acute fracture or malalignment.
== END 2025-06-13 10:48 | disposition home or self-care (01) ==
PROVIDERS: PCP Internal Medicine; Visit Provider Internal Medicine
DX: M16.11 Unilateral primary osteoarthritis, right hip (principal); M79.661 Pain in right lower leg
CPT/HCPCS: 73502